=== PATIENT | female | born 1995 | race Caucasian/White ===

== ENCOUNTER 2016-11-14 15:03 | Emergency (ER) | payer OTHER ==
[~2016-11-14] VITALS: Ht 162.6 cm; Wt 49.5 kg
[~2016-11-14 15:03] MED LIST: BCPILLS PO; CITA20TA9 PO; GUAN1TAB PO; METH5TAB4 PO
[2016-11-14 15:10] VITALS: TEMP 36.5; Ht 162.6 cm; Wt 49.5 kg
[2016-11-14 16:12] LABS: BASO % 0.1 %; BASO ABS # 0.01 K/uL (0-0.2); COMPLETE YES; EOS % 0.5 %; HEMATOCRIT 40.3 % (37-47); IG% 0.2 %; LYMPH % 24.4 %; LYMPH ABS # 2.09 K/uL (1.2-3.4); MEAN CELL VOLUME 85.6 fL (80-100); MEAN CORPUSCULAR HEMOGLOBIN 29.5 pg (25-34); MEAN CORPUSCULAR HGB CONC 34.5 g/dl (32-36); MEAN PLATELET VOLUME 10.2 fL (7.4-10.4); MONO % 6.8 %; PLATELET COUNT 244 K/uL (130-400); RED BLOOD COUNT 4.71 M/uL (4.2-5.4); WHITE BLOOD COUNT 8.55 K/uL (4.8-10.8)
[2016-11-14] MEDS ORDERED: CLX/20 PO (16:12)
[2016-11-14] MEDS ORDERED: LORAZEPAM 0.5 MG TAB SL STA (16:12)
[2016-11-14] MEDS ORDERED: ONDANSETRON 4MG OD TAB PO STA (16:12)
[2016-11-14] MEDS ORDERED: PANTOprazole SOD 40 MG TAB PO STA (16:12)
[2016-11-14] MEDS ORDERED: METH1TAB16 PO (16:12)
[2016-11-14 16:19] LABS: URINE APPEARANCE CLEAR (CLEAR); URINE BILIRUBIN NEG (NEG); URINE COLOR YELLOW; URINE NITRITE NEG (NEG); URINE SPECIFIC GRAVITY 1.018 (1.000-1.030); UROBILINOGEN NEG (NEG); ZZUR CULT IF INDIC CLEAN CATCH NO
[2016-11-14 16:20] LABS: MANUAL MICROSCOPIC REQUIRED? NO; REVIEW REQ? NO
[2016-11-14 16:31] LABS: ACETAMINOPHEN < 2 ug/ml (10-30)
[2016-11-14 16:32] LABS: BUN/CREATININE RATIO 8.5 (10-20); CALCIUM 9.2 mg/dl (8.5-10.1); CREATININE 0.81 mg/dl (0.60-1.20); POTASSIUM 3.4 mmol/L (3.5-5.1)
[2016-11-14 16:43] LABS: THYROID STIMULATING HORMONE 1.24 uIu/ml (0.300-4.500)
[2016-11-14 16:54] LABS: BENZODIAZEPINE, URINE NEG (NEG); COCAINE,URINE NEG (NEG); PHENCYCLIDINE, URINE NEG (NEG)
--- NOTE | 2016-11-14 17:14 | EMERGENCY ROOM VISIT NOTE ---
History Report prepared by Cy: Pietro Pascal Under the Supervision of: Dr. Cesar He D.O. First contact with patient: 15:51 Chief Complaint: ANXIETY Stated Complaint: ANXIETY,NAUSEA History of Present Illness The patient is a 21 year old female who presents to the Emergency Room with complaints of persistent abdominal discomfort that started yesterday evening around 6 PM. The patient notes that she was drinking alcohol yesterday between the hours of noon and 4 PM. She took a nap and when she woke up she noticed the abdominal discomfort. The patient also complained of severe nausea, diarrhea, shakes, chills and anxiety-like symptoms after the nap. She notes that she had decreased appetite and fluid-intake today. She feels very dehydrated and notes the abdominal discomfort is still coming and going today. She denies vomiting, black or bloody stools, urinary symptom, or thoughts of hurting herself currently. She has never been hospitalized for anxiety symptoms before. She takes daily medications for anxiety and Tourette's. She skipped her medications yesterday, but has been taking them regularly besides then. Source of History: patient Onset: yesterday evening Position: abdomen Timing: other (persistent) Associated Symptoms: + chills, + diarrhea, + nausea, No urinary symptoms, No vomiting Note: Other associated symptoms: shakes, anxiety-like symptoms, decreased appetite and fluid intake, dehydrated Denies: black or bloody stools, thoughts of hurting herself Review of Systems See HPI for pertinent positives & negatives. A total of 10 systems reviewed and were otherwise negative. Past Medical & Surgical Medical Problems: (1) Tourettes syndrome Social History Problems: (1) Uses control Family History No pertinent family history Social History Smoking Status: Never Smoker Marital Status: single Housing Status: lives with roommate Occupation Status: [employer] student Current/Historical Medications Scheduled Control Pills ( Control Pills), 1 TAB PO DAILY Citalopram (Citalopram Hydrobromide), 30 MG PO DAILY Clonazepam (Klonopin), 1 MG PO Q8 Guanfacine Hcl (Tenex), 0.5 MG PO DAILY Omeprazole (Prilosec), 20 MG PO DAILY Ondasetron Odt (Zofran Odt), 4 MG SL Q6H Scheduled PRN Methylphenidate (Ritalin), 5 MG PO DAILY PRN for Focus Methylphenidate Hcl (Methylphenidate Hcl Er), 18 MG PO DAILY PRN for Focus Allergies Coded Allergies: No Known Allergies (Unverified , 05/29/15) Physical Exam Vital Signs Date Time Temp Pulse Resp B/P Pulse Ox O2 Delivery O2 Flow Rate FiO2 11/14/16 17:59 66 16 119/72 100 11/14/16 15:10 36.5 67 16 133/86 100 Room Air Pain Rating (0-10): 0 Physical Exam GENERAL: Patient is awake alert in no acute distress patient is resting comfortably EYES: The conjunctivae are clear. The pupils are round and reactive. EARS, NOSE, MOUTH AND THROAT: The nose is without any evidence of any deformity. Mucous membranes are moist tongue is midline NECK: The neck is nontender and supple. RESPIRATORY: Normal respiratory effort is noted there is no evidence of wheezing rhonchi or rales CARDIOVASCULAR: Regular rate and rhythm noted there no murmurs rubs or gallops normal S1 normal S2 GASTROINTESTINAL: The abdomen is soft. Bowel sounds are present in all quadrants. Abdomen is nontender MUSCULOSKELETAL/EXTREMITIES: There is no evidence of gross deformity full range of motion is noted in the hips and shoulders SKIN: There is no obvious evidence of any rash. There are no petechiae, pallor or cyanosis noted. NEUROLOGIC: Patient is awake alert and oriented x3 strength is symmetric patellar reflexes are 2+ bilaterally. PSYCH: not anxious appearing, affect was normal, patient makes good eye contact , currently deny suicidal or homicidal ideation. Medical Decision & Procedures Laboratory Results 11/14/16 15:59 Red Blood Count 4.71, Mean Corpuscular Volume 85.6, Mean Corpuscular Hemoglobin 29.5, Mean Corpuscular Hemoglobin Concent 34.5, Mean Platelet Volume 10.2, Neutrophils (%) (Auto) 68.0, Lymphocytes (%) (Auto) 24.4, Monocytes (%) (Auto) 6.8, Eosinophils (%) (Auto) 0.5, Basophils (%) (Auto) 0.1, Neutrophils # (Auto) 5.81, Lymphocytes # (Auto) 2.09, Monocytes # (Auto) 0.58, Eosinophils # (Auto) 0.04, Basophils # (Auto) 0.01 11/14/16 15:59 Test 11/14/16 15:35 11/14/16 15:59 11/14/16 16:03 Urine Color YELLOW Urine Appearance CLEAR (CLEAR) Urine pH 6.0 (4.5-7.5) Urine Specific [place] 1.018 (1.000-1.030) Urine Protein NEG (NEG) Urine Glucose (UA) NEG (NEG) Urine Ketones NEG (NEG) Urine Occult Blood NEG (NEG) Urine Nitrite NEG (NEG) Urine Bilirubin NEG (NEG) Urine Urobilinogen NEG (NEG) Urine Leukocyte Esterase NEG (NEG) Urine Opiates Screen NEG (NEG) Urine Methadone, Qualitative NEG (NEG) Urine Barbiturates NEG (NEG) Urine Phencyclidine (PCP) Level NEG (NEG) Ur Amphetamine/Methamphetamine NEG (NEG) MDMA (Ecstasy) Screen NEG (NEG) Urine Benzodiazepines Screen NEG (NEG) Urine Cocaine Metabolite NEG (NEG) Urine Marijuana (THC) NEG (NEG) White Blood Count 8.55 K/uL (4.8-10.8) Red Blood Count 4.71 M/uL (4.2-5.4) Hemoglobin 13.9 g/dL (12.0-16.0) Hematocrit 40.3 % (37-47) Mean Corpuscular Volume 85.6 fL (80-100) Mean Corpuscular Hemoglobin 29.5 pg (25-34) Mean Corpuscular Hemoglobin Concent 34.5 g/dl (32-36) Platelet Count 244 K/uL (130-400) Mean Platelet Volume 10.2 fL (7.4-10.4) Neutrophils (%) (Auto) 68.0 % Lymphocytes (%) (Auto) 24.4 % Monocytes (%) (Auto) 6.8 % Eosinophils (%) (Auto) 0.5 % Basophils (%) (Auto) 0.1 % Neutrophils # (Auto) 5.81 K/uL (1.4-6.5) Lymphocytes # (Auto) 2.09 K/uL (1.2-3.4) Monocytes # (Auto) 0.58 K/uL (0.11-0.59) Eosinophils # (Auto) 0.04 K/uL (0-0.5) Basophils # (Auto) 0.01 K/uL (0-0.2) RDW Standard Deviation 40.2 fL (36.4-46.3) RDW Coefficient of Variation 12.7 % (11.5-14.5) Immature Granulocyte % (Auto) 0.2 % Immature Granulocyte # (Auto) 0.02 K/uL (0.00-0.02) Anion Gap 7.0 mmol/L (3-11) Est Creatinine Clear Calc Drug Dose 86.6 ml/min Estimated GFR () 121.2 Estimated GFR (Non- 104.6 BUN/Creatinine Ratio 8.5 (10-20) Calcium Level 9.2 mg/dl (8.5-10.1) Total Bilirubin 0.5 mg/dl (0.2-1) Aspartate Amino Transf (AST/SGOT) 17 U/L (15-37) Alanine Aminotransferase (ALT/SGPT) 20 U/L (12-78) Alkaline Phosphatase 63 U/L (45-117) Total Protein 7.5 gm/dl (6.4-8.2) Albumin 3.7 gm/dl (3.4-5.0) Globulin 3.8 gm/dl (2.5-4.0) Albumin/Globulin Ratio 1.0 (0.9-2) Thyroid Stimulating Hormone (TSH) 1.240 uIu/ml (0.300-4.500) Salicylates Level < 1.7 mg/dl (2.8-20) Acetaminophen Level < 2 ug/ml (10-30) Ethyl Alcohol mg/dL < 3.0 mg/dl (0-3) Laboratory results per my review. Medications Administered Medications (Trade) Dose Ordered Sig/Shae Route Start Time Stop Time Status Last Admin Dose Admin Lorazepam (Ativan Tab) 0.5 mg NOW STAT SL 11/14/16 16:12 11/14/16 16:13 DC 11/14/16 16:19 0.5 MG Pantoprazole Sodium (Protonix Tab) 40 mg NOW STAT PO 11/14/16 16:12 11/14/16 16:13 DC 11/14/16 16:12 40 MG Ondansetron HCl (Zofran Odt) 4 mg NOW STAT PO 11/14/16 16:12 11/14/16 16:13 DC 11/14/16 16:19 4 MG ED Course 1601: The patient was evaluated in room A8. A complete history and physical examination were performed. 1612: Ordered Zofran Odt 4 mg PO, Protonix Tab 40 mg PO, Ativan Tab 0.5 mg SL. 1732: At this time, I reevaluated the patient and she is resting comfortably. 1745: Upon reevaluation, the patient is resting comfortably. I discussed the results and treatment plan with her. She verbalized agreement of the treatment plan. The patient was discharged home. Medical Decision Differential diagnosis: Etiologies such as appendicitis, diverticulitis, PUD, biliary pathology, UTI, pancreatitis, obstruction, mesenteric ischemia, aortic pathology, infections, inflammatory bowel disease, renal colic, as well as others were entertained. Nursing notes reviewed. The patient is a 21-year-old female who presented to the emergency department for an evaluation of anxiety. The patient states she was having upper abdominal pain and started having severe anxiety. She has a history of anxiety in the past and feels that this is similar to her previous episodes. She does admit to some alcohol use over the last couple days. The patient was treated with anxiety medication as well as proton pump inhibitors in the emergency department. On subsequent reevaluation she was feeling much better. The patient was evaluated by the emergency Department mental health showcase maker. She does not meet any specific inpatient criteria at this time. She was encouraged to rest and avoid any strenuous activity. She was also encouraged to continue all medications as prescribed. She was also encouraged to follow-up with her primary care physician as well as her primary therapist but return to the emergency department immediately if symptoms change worsen or the need arises. Impression Primary Impression: Gastritis Additional Impressions: Nausea Anxiety Scribe Attestation The scribe's documentation has been prepared under my direction and personally reviewed by me in its entirety. I confirm that the note above accurately reflects all work, treatment, procedures, and medical decision making performed by me. Departure Information Dispostion Home / Self-Care Prescriptions Ondasetron Odt (ZOFRAN ODT) 4 Mg Tab 4 MG SL Q6H for Nausea, #15 TAB Prov: Cesar He, DO 11/14/16 Clonazepam (Klonopin) 1 Mg Tab 1 MG PO Q8, #15 TAB Prov: Cesar He, DO 11/14/16 Omeprazole (PRILOSEC) 20 Mg Capcr 20 MG PO DAILY, #30 CAP Prov: Cesar He, DO 11/14/16 Referrals No Doctor, Assigned (PCP) Forms HOME CARE DOCUMENTATION FORM, IMPORTANT VISIT INFORMATION Patient Instructions Anxiety Disorder, Gastritis Tx, My [facility] Additional Instructions Continue all medications as prescribed. Drink plenty clear liquids. Avoid any fatty spicy or fried foods. Avoid any alcohol intake. Consider trying liquids such as Gatorade or Pedialyte to further hydrate herself. Follow-up with [facility] this week for reevaluation. Call crisis or return to the emergency department immediately if anxiety symptoms worsen. Problem Qualifiers Primary Impression: Gastritis Gastritis type: unspecified gastritis Chronicity: unspecified Gastritis bleeding: without bleeding Qualified Codes: K29.70 - Gastritis, unspecified, without bleeding
[2016-11-14] MEDS ORDERED: CLON1TAB3 PO (17:31)
[2016-11-14] MEDS ORDERED: PRLSR20 PO (17:31)
[2016-11-14] MEDS ORDERED: ONDA4TAB10 SL (17:36)
[2016-11-14 17:59] VITALS: BP 119/72; PULSE 66; O2SAT 100
[2016-11-19 15:37] LABS: SYNTHETIC CANNABINOIDS QL URIN NEGATIVE (Negative)
== END 2016-11-14 18:02 | disposition home or self-care (01) ==
LOC: C.EDB 15:04 → C.EDA 18:02
DX: K29.70 Gastritis, unspecified, without bleeding (principal); R11.0 Nausea; F41.9 Anxiety disorder, unspecified; F95.2 Tourette's disorder